=== PATIENT | male | born 1975 | race African-American/Black ===

== ENCOUNTER 2025-01-18 15:32 | Inpatient (IN) | payer MEDICARE, MEDICAID ==
[~2025-01-18] VITALS: Ht 157.5 cm; Wt 56.7 kg
[~2025-01-18 15:32] MED LIST: AMLO5TAB88 PO; APIX5TAB MT; CARV12.545 PO
[2025-01-18 15:34] VITALS: O2SAT 99
[2025-01-18 17:37] LABS: BASOPHILS % 3.0 % (0.0-2.0); EOSINOPHILS % 5.0 % (0.0-5.0); HEMATOCRIT. 29.6 % (42.0-52.0); HEMOGLOBIN. 9.9 g/dL (14.0-18.0); LYMPHOCYTES % 32.9 % (20.0-50.0); MEAN PLATELET VOLUME 9.1 fl (7.4-10.4); MONOCYTES % 3.9 % (2.0-8.0); NEUTROPHILS % 55.2 % (40.0-76.0); PLATELET 129 x1000/uL (130-400); RED BLOOD CELL COUNT 3.05 mill/uL (4.7-6.1); RED CELL DISTRIBUTION WIDTH 15.5 % (11.6-14.6)
[2025-01-18 17:43] LABS: TROPONIN I HIGH SENSITIVITY 24 ng/L (3.0-53)
[2025-01-18 17:47] LABS: ASPARTATE AMINOTRANSFERASE 16 IU/L (<34); BILIRUBIN DIRECT < 0.1 mg/dL (<=3.0); BILIRUBIN TOTAL 0.2 mg/dL (0.1-1.0); PROTEIN TOTAL 7.5 g/dL (6.0-8.3)
[2025-01-18 17:53] LABS: CREATININE 29.0 mg/dL (0.6-1.3); UREA NITROGEN BLOOD 136 mg/dL (9-23)
[2025-01-18] MEDS: CALCIUM GLUCONATE 100MG/ML 10ML VIAL IV ONE (18:56)
[2025-01-18] MEDS: DEXTROSE 50% WATER 50ML SYRINGE IV ONE (19:10)
[2025-01-18] MEDS: INSULIN REGULAR (HUMULIN R) 1000UNITS/10ML VIAL IV ONE (19:19)
[2025-01-18] MEDS: SODIUM BICARBONATE 8.4% 50MEQ/50ML VIAL IV ONE (19:21)
[2025-01-18] MEDS: SODIUM BICARBONATE 8.4% 50MEQ/50ML SYR IV ONE (19:28)
[2025-01-18] MEDS ORDERED: HYDROCODONE/ACETAMINOPHEN 10/325MG TABLET PO PRN (20:15)
[2025-01-18] MEDS ORDERED: NALOXONE HCL 0.4MG/ML VIAL IV PRN (20:15)
[2025-01-18] MEDS: MORPHINE SULFATE 4 MG/ML INJ (FOR IV/IM USE) IV ONE (20:25)
[2025-01-18 21:37] LABS: TROPONIN I HIGH SENSITIVITY 29 ng/L (3.0-53)
[2025-01-18 21:50] VITALS: BP 167/123; PULSE 65; RESP 17; TEMP 35.7; TEMP 35.7508; O2SAT 94
[2025-01-18] MEDS ORDERED: CLONIDINE 0.1MG TABLET PO PRN (23:00)
[2025-01-19] VITALS (11 sets, daily range): BP systolic 86–139; BP diastolic 40–86; PULSE 47–81; RESP 17–20; TEMP 36.3–37; O2SAT 97–100
[2025-01-19] MEDS: SODIUM ZIRCONIUM CYCLOSILICATE 10GM/PACKET PO SCH (00:20)
[2025-01-19] MEDS ORDERED: NITROGLYCERIN 0.4MG TABLET SL SL PRN (02:30)
[2025-01-19] MEDS: HYDRALAZINE HCL 100MG TABLET PO SCH (05:16)
[2025-01-19 06:46] LABS: BASOPHILS % 2.4 % (0.0-2.0); EOSINOPHILS % 5.5 % (0.0-5.0); HEMATOCRIT. 28.4 % (42.0-52.0); HEMOGLOBIN. 9.5 g/dL (14.0-18.0); LYMPHOCYTES % 38.8 % (20.0-50.0); MEAN PLATELET VOLUME 9.1 fl (7.4-10.4); MONOCYTES % 7.0 % (2.0-8.0); NEUTROPHILS % 46.3 % (40.0-76.0); PLATELET 101 x1000/uL (130-400); RED BLOOD CELL COUNT 2.95 mill/uL (4.7-6.1); RED CELL DISTRIBUTION WIDTH 15.9 % (11.6-14.6)
[2025-01-19 07:31] LABS: PHOSPHORUS 6.4 mg/dL (2.5-4.9)
[2025-01-19 07:32] LABS: CREATININE 29.6 mg/dL (0.6-1.3); UREA NITROGEN BLOOD 136 mg/dL (9-23)
[2025-01-19 07:52] LABS: HEPATITIS A AB IGM NEGATIVE (Negative); HEPATITIS B CORE AB IGM NEGATIVE (Negative)
[2025-01-19 07:53] LABS: HEPATITIS C AB NON REACTIVE (Neg) (Negative)
[2025-01-19] MEDS ORDERED: ASPIRIN 81MG TABLET PO SCH (09:00)
[2025-01-19] MEDS: LOSARTAN 50 MG TABLET PO SCH ×2 (09:00→09:07)
[2025-01-19] MEDS: SEVELAMER CARBONATE 800 MG TABLET PO SCH (09:04)
[2025-01-19] MEDS: AMLODIPINE 10MG TABLET PO SCH (09:04)
[2025-01-19] MEDS: METOPROLOL TARTRATE 25MG TABLET PO SCH (09:05)
[2025-01-19] MEDS: ATORVASTATIN CALCIUM 40MG TABLET PO SCH (09:05)
[2025-01-19] MEDS: CALCITRIOL 0.25MCG CAPSULE PO SCH (09:07)
[2025-01-19 09:39] LABS: TRIGLYCERIDE 116.0 mg/dL (0-150)
[2025-01-19 09:40] LABS: LDL CHOLESTEROL 61.0 mg/dL (5-100); TROPONIN I HIGH SENSITIVITY 48 ng/L (3.0-53)
[2025-01-19 09:41] LABS: PHOSPHORUS 6.2 mg/dL (2.5-4.9)
[2025-01-19 11:09] LABS: INR 1.0
[2025-01-19] MEDS ORDERED: HEPARIN 1000 UNITS/ML 10ML ONE (11:25)
[2025-01-19] MEDS ORDERED: LIDOCAINE HCL 1% 10 MG/ML 10ML VIAL ONE (11:25)
[2025-01-19] MEDS: ONDANSETRON HCL 4MG/2ML INJ IV PRN (14:08)
[2025-01-19] MEDS: MANNITOL 12.5G (25%) VIAL 50ML IV NR (19:22)
[2025-01-20] VITALS (11 sets, daily range): BP systolic 96–127; BP diastolic 38–63; PULSE 60–92; RESP 17–20; TEMP 35.6–37; O2SAT 98–100
[2025-01-20] MEDS ORDERED: LORAZEPAM 2MG/ML UD SYRINGE IV PRN (04:45)
[2025-01-20 05:38] LABS: PLATELET 93 x1000/uL (130-400); RED BLOOD CELL COUNT 2.94 mill/uL (4.7-6.1); RED CELL DISTRIBUTION WIDTH 15.2 % (11.6-14.6)
[2025-01-20 05:54] LABS: UREA NITROGEN BLOOD 83.0 mg/dL (9-23)
[2025-01-20 06:04] LABS: CREATININE 21.7 mg/dL (0.6-1.3)
[2025-01-20] MEDS: SEVELAMER CARBONATE 800 MG TABLET PO SCH (08:40)
[2025-01-20] MEDS ORDERED: LIDOCAINE HCL 1% 10 MG/ML 10ML VIAL ONE (09:38)
[2025-01-20] MEDS ORDERED: IODIXANOL 320MG/ML 100 ML BOTTLE IV ONE (09:38)
[2025-01-20] MEDS ORDERED: HEPARIN 1000 UNITS/ML 10ML ONE (09:39)
[2025-01-20] MEDS ORDERED: FENTANYL CITRATE/PF 50MCG/ML 2ML VIAL ONE (09:44)
[2025-01-20] MEDS ORDERED: PROPOFOL 200MG/20ML VIAL IV ONE (09:44)
[2025-01-20] MEDS ORDERED: ONDANSETRON HCL 4MG/2ML INJ ONE (09:44)
[2025-01-20] MEDS ORDERED: DEXAMETHASONE 4MG/ML 1ML VIAL ONE (09:44)
[2025-01-20] MEDS ORDERED: LIDOCAINE HCL 1% 20ML VIAL ONE (09:46)
[2025-01-20] MEDS ORDERED: ALTEPLASE 2MG/VIAL ITC ONE (10:30)
[2025-01-20] MEDS: MIDODRINE HCL 5MG TABLET PO SCH (12:51)
[2025-01-21] VITALS (10 sets, daily range): BP systolic 87–141; BP diastolic 50–97; PULSE 73–102; RESP 18–19; TEMP 36.3–36.6; O2SAT 93–99
[2025-01-22] MEDS ORDERED: ENOXAPARIN 30MG/0.3ML SYR SUBCUT SCH (09:00)
[2025-01-22] MEDS ORDERED: EPOETIN ALFA-EPBX 4,000 UNITS/ML VIAL SUBCUT SCH (21:00)
== END 2025-01-21 16:05 | disposition home or self-care (01) | DRG 252 ==
LOC: ER 15:32 → EDBEDREQ 18:33 → EDBEDREQTM 18:33 → ENRESERV 21:20 → 7WST 21:52
PROVIDERS: ADMIT Internal Medicine; ATTEND Internal Medicine
PROC: 02H633Z Insertion of Infusion Device into Right Atrium, Percutaneous Approach (ICD-10-PCS; 2025-01-19)
PROC: B548ZZA Ultrasonography of Superior Vena Cava, Guidance (ICD-10-PCS; 2025-01-19)
PROC: 5A1D70Z Performance of Urinary Filtration, Intermittent, Less than 6 Hours Per Day (ICD-10-PCS; 2025-01-19)
PROC: 037Y3ZZ Dilation of Upper Artery, Percutaneous Approach (ICD-10-PCS; principal; 2025-01-20)
PROC: B51WYZZ Fluoroscopy of Dialysis Shunt/Fistula using Other Contrast (ICD-10-PCS; 2025-01-20)
PROC: 3E05317 Introduction of Other Thrombolytic into Peripheral Artery, Percutaneous Approach (ICD-10-PCS; 2025-01-20)
PROC: 5A1D70Z Performance of Urinary Filtration, Intermittent, Less than 6 Hours Per Day (ICD-10-PCS; 2025-01-20)
PROC: 5A1D70Z Performance of Urinary Filtration, Intermittent, Less than 6 Hours Per Day (ICD-10-PCS; 2025-01-21)
DX: T82.898A Other specified complication of vascular prosthetic devices, implants and grafts, initial encounter (principal); N18.6 End stage renal disease; I13.2 Hypertensive heart and chronic kidney disease with heart failure and with stage 5 chronic kidney disease, or end stage renal disease; Z99.2 Dependence on renal dialysis; Z79.01 Long term (current) use of anticoagulants; E11.22 Type 2 diabetes mellitus with diabetic chronic kidney disease; Z95.828 Presence of other vascular implants and grafts; E87.5 Hyperkalemia; F17.210 Nicotine dependence, cigarettes, uncomplicated; Q90.9 Down syndrome, unspecified; Z79.899 Other long term (current) drug therapy; Z82.49 Family history of ischemic heart disease and other diseases of the circulatory system; Z86.711 Personal history of pulmonary embolism; Y83.2 Surgical operation with anastomosis, bypass or graft as the cause of abnormal reaction of the patient, or of later complication, without mention of misadventure at the time of the procedure; Y92.89 Other specified places as the place of occurrence of the external cause
CPT/HCPCS: 36415; 36556; 36905; 71045; 77001; 80048; 80061; 80076; 82962; 83735; 83880; 84100; 84443; 84484; 85025; 85027; 86705; 86709; 87340; 90935; 93005; 93306; 93971; 96374; 96375; 99291; C1725; C1752; C1766; C1769; C1887; J0612; J1100; J1644; J1650; J1815; J2003; J2151; J2270; J2405; J2704; J2997; J3010; J3490; L8514; Q9967